=== PATIENT | male | born 1965 | race Caucasian/White ===

== ENCOUNTER → 2019-09-13 08:11 | Outpatient (BNVA) | payer MEDICARE, MEDICAID, SELFPAY | PROVIDERS: Family Provider Nurse Practitioner Family; PCP Family Medicine; Visit Provider Nurse Practitioner Psychiatric/Mental Health | DX: F31.73 Bipolar disorder, in partial remission, most recent episode manic (principal); F98.0 Enuresis not due to a substance or known physiological condition; F41.1 Generalized anxiety disorder; F17.210 Nicotine dependence, cigarettes, uncomplicated | CPT/HCPCS: 99213 ==

== ENCOUNTER → 2019-10-08 07:42 | Outpatient (BNVA) | payer MEDICARE, MEDICAID, SELFPAY | PROVIDERS: Family Provider Nurse Practitioner Family; PCP Family Medicine; Visit Provider Nurse Practitioner Psychiatric/Mental Health | DX: F31.73 Bipolar disorder, in partial remission, most recent episode manic (principal); F98.0 Enuresis not due to a substance or known physiological condition; F41.1 Generalized anxiety disorder; F17.210 Nicotine dependence, cigarettes, uncomplicated | CPT/HCPCS: 99213 ==

== ENCOUNTER → 2019-12-31 08:07 | Outpatient (BNVA) | payer MEDICARE, MEDICAID, SELFPAY | PROVIDERS: Family Provider Nurse Practitioner Family; PCP Family Medicine; Visit Provider Nurse Practitioner Psychiatric/Mental Health | DX: F31.73 Bipolar disorder, in partial remission, most recent episode manic (principal); F17.210 Nicotine dependence, cigarettes, uncomplicated; F41.1 Generalized anxiety disorder; F98.0 Enuresis not due to a substance or known physiological condition | CPT/HCPCS: 99213 ==

== ENCOUNTER → 2020-03-13 10:58 | Outpatient (BNVA) | payer MEDICARE, MEDICAID, SELFPAY | PROVIDERS: Family Provider Nurse Practitioner Family; PCP Family Medicine; Visit Provider Nurse Practitioner Psychiatric/Mental Health | DX: F31.73 Bipolar disorder, in partial remission, most recent episode manic (principal); F98.0 Enuresis not due to a substance or known physiological condition; F41.1 Generalized anxiety disorder; F17.210 Nicotine dependence, cigarettes, uncomplicated | CPT/HCPCS: 99213 ==

== ENCOUNTER → 2020-06-12 09:23 | Outpatient (BNVA) | payer MEDICARE, MEDICAID, SELFPAY | PROVIDERS: Family Provider Nurse Practitioner Family; PCP Family Medicine; Visit Provider Nurse Practitioner Psychiatric/Mental Health | DX: F31.73 Bipolar disorder, in partial remission, most recent episode manic (principal); F98.0 Enuresis not due to a substance or known physiological condition; F41.1 Generalized anxiety disorder; F17.210 Nicotine dependence, cigarettes, uncomplicated | CPT/HCPCS: 99214 ==

== ENCOUNTER → 2020-09-18 08:34 | Outpatient (BNVA) | payer MEDICARE, MEDICAID, SELFPAY | PROVIDERS: Family Provider Nurse Practitioner Family; PCP Family Medicine; Visit Provider Nurse Practitioner Psychiatric/Mental Health | DX: F31.73 Bipolar disorder, in partial remission, most recent episode manic (principal); F98.0 Enuresis not due to a substance or known physiological condition; F41.1 Generalized anxiety disorder; F17.210 Nicotine dependence, cigarettes, uncomplicated | CPT/HCPCS: 99214 ==

== ENCOUNTER 2020-12-11 16:12 | Emergency (ER) | payer MEDICARE, MEDICAID, SELFPAY ==
--- NOTE | 2020-12-11 16:17 | USR_ITS ---
PROCEDURE INFORMATION: Exam: US Duplex Left Lower Extremity Veins, Limited Exam date and time: 12/11/2020 4:17 PM Age: 55 years old Clinical indication: Patient HX: Swollen red lower lt leg; Additional info: Swelling/pain TECHNIQUE: Imaging protocol: Real-time Duplex ultrasound of the Left Lower Extremity with 2-D hyman scale, color Doppler flow and spectral waveform analysis with image documentation. Limited exam focused on the left lower extremity veins. COMPARISON: No relevant prior studies available. FINDINGS: Left deep veins: Unremarkable. The common femoral, femoral, proximal profunda femoral, popliteal, posterior tibial and peroneal veins are patent without thrombus. Normal compressibility, augmentation response and Doppler waveforms. Left superficial veins: Unremarkable. Saphenofemoral junction is patent without thrombus. Soft tissues: Subcutaneous edema in the calf. Lymph nodes: Small left inguinal lymph nodes, likely reactive. US/CV venous duplex [facility] [id number] IMPRESSION: No sonographic evidence of deep venous thrombosis.
[2020-12-11 17:11] VITALS: BP 116/83; PULSE 79; RESP 20; TEMP 36.6; O2SAT 97; BMI 26.9
--- NOTE | 2020-12-11 18:21 | ED_ITS ---
HPI - Extremity Problem General: Chief complaint: Extremity Problem,Nontraumatic Stated complaint: LLE swelling and pain Time Seen by Provider: 12/11/20 18:17 History of Present Illness: HPI Narrative: Patient is a 55-year-old male comes to the ED with left lower extremity complaint. Patient is deaf and communicates by writing things down. Patient says he has had left lower extremity pain and swelling for the past 5 days. Denies any injury or trauma to cause pain. The leg is also been red as well. Associated symptoms: Deny chest pain, fever(s) or rash Review of Systems Const: Denies: fever(s), chills or fatigue Eyes: Denies: change in vision or eye discomfort ENMT: Denies: throat pain, odynophagia, nasal discharge or nasal congestion Card: Denies: chest pain, palpitations, edema, swelling of feet/ankles, dyspnea on exertion or orthopnea Resp: Denies: dyspnea, productive cough or non-productive cough GI: Denies: abdominal pain, nausea, vomiting, diarrhea, constipation or hematochezia : Denies: flank pain, difficulty urinating, dysuria or hematuria Musc: Reports: extremity pain (left lower leg) and extremity swelling (left lower leg); Denies: neck pain or back pain Skin/Breast: Denies: rash or new lesions Neuro: Denies: headache(s), numbness in extremities or weakness in extremities PFSH ED PFSH: Medical History Bipolar disorder, in partial remission, most recent episode manic COPD (chronic obstructive pulmonary disease) Deaf Enuresis not due to a substance or known physiological condition Generalized anxiety disorder Hyperlipemia Hypothyroid Insomnia disorder Nicotine dependence, cigarettes, uncomplicated Obstructive sleep apnea Vitamin D deficiency Physical Exam Const: COMMON NORMALS: no acute distress, patient oriented x3 and alert EXAM LIMITATIONS: physical limitations (Patient is deaf) GENERAL APPEARANCE: cooperative and comfortable HENMT: COMMON NORMALS: normocephalic HEAD & SCALP: normocephalic MOUTH: Normal oral and palatal mucosa present THROAT: posterior oropharynx normal and uvula midline Neck/C-Spine: COMMON NORMALS: supple GENERAL: Yes normal visual inspection Resp: COMMON NORMALS: normal respiratory effort, No retractions, No use of accessory muscles and clear to auscultation bilaterally AUSCULTATION: clear to auscultation bilaterally Cardio: COMMON NORMALS: regular rate, regular rhythm, S1 normal heart sound present, S2 normal heart sound present, No gallops present (Cardio), No clicks present (Cardio), No murmurs present (Cardio) and Peripheral pulses 2+ throughout RATE: regular rate RHYTHM: regular rhythm HEART SOUNDS: S1 normal heart sound present and S2 normal heart sound present PERIPHERAL PULSES: Peripheral pulses 2+ throughout GI: COMMON NORMALS: Normal to inspection, nondistended, normoactive bowel sounds present, Soft to palpation, non-tender and no masses PALPATION: Yes Soft to palpation : COMMON NORMALS: Yes no CVA tenderness BLADDER/KIDNEY EXAM: Yes no CVA tenderness Back/Pelvis: COMMON NORMALS: no CVA tenderness Extremity: NARRATIVE EXTREMITY EXAM: Patient's left lower leg has erythema, warmth and tenderness upon palpation. 2+ pitting edema in left lower extremity. Findings suggestive of cellulitis. GENERAL: Yes normal exam except as noted and Yes edema (2+ pitting edema in left lower extremity.) Neuro: COMMON NORMALS: patient oriented x3 and moves all extremities SENSORIUM/ORIENTATION: Yes alert Skin: GENERAL SKIN EXAM: dry skin Course Vital Signs: Vital signs: Vital Signs Temperature 98 F 12/11/20 17:11 Pulse Rate 87 12/11/20 18:54 Respiratory Rate 16 12/11/20 18:54 Blood Pressure 116/83 12/11/20 17:11 Pulse Oximetry 98 12/11/20 18:54 MDM - Extremity (Nontraumatic) MDM Narrative: Medical decision making narrative: Patient is a 55-year-old male comes to the ED with left lower extremity pain and swelling. Exam shows signs of cellulitis in the left lower extremity. Patient does have 2+ pitting edema to the left lower extremity. Ultrasound venous duplex of left lower extremity showed no DVTs or blood clots seen. Patient diagnosed with cellulitis and discharged home on Bactrim. He was told to follow-up with his PCP in 7 to 10 days reevaluation. Patient understood and agreed with plan. Imaging Data^: US Vascular: Attestation: I personally reviewed and interpreted this imaging study as follows: Radiologist's impression: [address] [id number] ReportSigned Patient: Satish Blas #: [id number]: [id number]#:[id number]/Sex: 55 / MADM Date: 12/11/20Loc: ERRoom/Bed:Attending Dr: Ordering Provider/Ordering MD: Sander Paige DO Date of Service: 12/11/20 Procedure(s): [place] [address] Accession Number(s): [id number] Report Number: [id number] PROCEDURE INFORMATION: Exam: US Duplex Left Lower Extremity Veins, Limited Exam date and time: 12/11/2020 4:17 PM Age: 55 years old Clinical indication: Patient HX: Swollen red lower lt leg; Additional info: Swelling/pain TECHNIQUE: Imaging protocol: Real-time Duplex ultrasound of the Left Lower Extremity with 2-D hymna scale, color Doppler flow and spectral waveform analysis with image documentation. Limited exam focused on the left lower extremity veins. COMPARISON: No relevant prior studies available. FINDINGS: Left deep veins: Unremarkable. The common femoral, femoral, proximal profunda femoral, popliteal, posterior tibial and peroneal veins are patent without thrombus. Normal compressibility, augmentation response and Doppler waveforms. Left superficial veins: Unremarkable. Saphenofemoral junction is patent without thrombus. Soft tissues: Subcutaneous edema in the calf. Lymph nodes: Small left inguinal lymph nodes, likely reactive. US/[place] [id number] IMPRESSION: No sonographic evidence of deep venous thrombosis. Dictated By:Dallas Dailey MDSigned By:Dallas Dailey MDSigned Date/Time:12/11/201706DD/ 04 Discharge Plan Discharge Patient Disposition: Home Clinical Impression: Cellulitis Qualifiers: Site of cellulitis: extremity Site of cellulitis of extremity: lower extremity Laterality: left Qualified Code(s): L03.116 - Cellulitis of left lower limb Condition: Stable Prescriptions: New sulfamethoxazole-trimethoprim 800-160 mg tablet 1 tab PO BID 7 Days Qty: 14 RF: 0 No Action haloperidol 5 mg tablet 5 mg PO BID PRN (Reason: agitation) Qty: 60 RF: 3 simvastatin 20 mg tablet 40 mg PO QDAY RF: 0 desmopressin 0.1 mg tablet See Rx Instructions .ROUTE .COMPLEX Qty: 90 RF: 3 fluticasone propion-salmeterol [Wixela Inhub] 250-50 mcg/dose blister with device See Rx Instructions .ROUTE .COMPLEX Qty: 60 RF: 5 levothyroxine 50 mcg tablet See Rx Instructions .ROUTE .COMPLEX Qty: 30 RF: 5 divalproex [Depakote] 250 mg tablet,delayed release (DR/EC) 500 mg PO .Q6pm Qty: 60 RF: 6 lorazepam 1 mg tablet 1 mg PO BID Qty: 60 RF: 3 risperidone [Risperdal] 2 mg tablet 6 mg PO .QHS Qty: 90 RF: 6 trazodone 50 mg tablet 50 mg PO .bedtime PRN (Reason: sleep) Qty: 30 RF: 6 trihexyphenidyl 5 mg tablet 5 mg PO TID Qty: 90 RF: 6 ergocalciferol (vitamin D2) 1,250 mcg (50,000 unit) capsule See Rx Instructions .ROUTE .COMPLEX Qty: 12 RF: 1 Discharge Orders: Discharge ED (Routine); Ordered 12/11/20 Ordered By: Salvador Tadeo Referrals: Tennille Chavez MD [Primary Care Provider] - Discharge Diet: Regular Discharge Activity: Resume usual activity Patient Instructions: Cellulitis (ED) Activity Restrictions/Additional Instructions: While here in the ED your left leg was evaluated by ultrasound for blood clot and the report was negative for any blood clot or DVTs. Follow-up with medical provider as directed in 7 to 10 days for reevaluation. Rest, elevate left leg and wear compression stockings to help with the swelling. Take full course of antibiotic as prescribed. Return to the ER or your medical provider if condition worsens. Please read and understand discharge instructions. Thank you for choosing [facility] for your healthcare needs today. Please realize this is an emergency room and that we are providing you with a medical screening exam and this may not be complete and all inclusive of all the testing and or work up that you may need to determine your ailment or severity of your illness. It is very important that you follow up as instructed or that you return to the Emergency Department should you have concerns or if your condition changes or worsens in any way. Coding Level of Care Code ED Roving Machine Operator for Laura Wing Exam Comprehensive
[2020-12-11] MEDS: sulfamethoxazole-trimeth DS 160-800 mg Tablet 1 TAB PO (18:49)
[2020-12-11 18:54] VITALS: PULSE 87; RESP 16; O2SAT 98
== END 2020-12-11 18:55 | disposition home or self-care (01) ==
PROVIDERS: Emergency Provider Physician Assistant; PCP Family Medicine
DX: L03.116 Cellulitis of left lower limb (principal); J44.9 Chronic obstructive pulmonary disease, unspecified; E78.5 Hyperlipidemia, unspecified; E03.9 Hypothyroidism, unspecified; G47.33 Obstructive sleep apnea (adult) (pediatric)
CPT/HCPCS: 93971; 99283

== ENCOUNTER → 2021-02-05 12:31 | Outpatient (BNVA) | payer MEDICARE, MEDICAID, SELFPAY | PROVIDERS: PCP Family Medicine; Visit Provider Nurse Practitioner Family | DX: Z00.00 Encounter for general adult medical examination without abnormal findings (principal); E55.9 Vitamin D deficiency, unspecified; E03.9 Hypothyroidism, unspecified; E78.2 Mixed hyperlipidemia; Z79.899 Other long term (current) drug therapy | CPT/HCPCS: 80053; 80061; 81003; 82306; 83036; 84443; 85025 ==

== ENCOUNTER → 2021-03-12 08:09 | Outpatient (BNVA) | payer MEDICARE, MEDICAID, SELFPAY | PROVIDERS: PCP Family Medicine; Visit Provider Nurse Practitioner Psychiatric/Mental Health | DX: F31.73 Bipolar disorder, in partial remission, most recent episode manic (principal); F98.0 Enuresis not due to a substance or known physiological condition; F41.1 Generalized anxiety disorder; F17.210 Nicotine dependence, cigarettes, uncomplicated; Z79.899 Other long term (current) drug therapy | CPT/HCPCS: 99214 ==

== ENCOUNTER → 2021-05-07 12:10 | Outpatient (BNVA) | payer MEDICARE, MEDICAID, SELFPAY | PROVIDERS: PCP Nurse Practitioner Family; Visit Provider Nurse Practitioner Family | DX: E78.2 Mixed hyperlipidemia (principal); E55.9 Vitamin D deficiency, unspecified; E03.9 Hypothyroidism, unspecified; F31.73 Bipolar disorder, in partial remission, most recent episode manic; Z79.899 Other long term (current) drug therapy | CPT/HCPCS: 80053; 80164; 82306; 84443; 85025 ==

== ENCOUNTER → 2021-06-18 08:15 | Outpatient (BNVA) | payer MEDICARE, MEDICAID, SELFPAY | PROVIDERS: PCP Nurse Practitioner Family; Visit Provider Nurse Practitioner Psychiatric/Mental Health | DX: F31.73 Bipolar disorder, in partial remission, most recent episode manic (principal); F98.0 Enuresis not due to a substance or known physiological condition; F41.1 Generalized anxiety disorder; F17.210 Nicotine dependence, cigarettes, uncomplicated; Z79.899 Other long term (current) drug therapy | CPT/HCPCS: 99214 ==

== ENCOUNTER → 2021-09-17 08:24 | Outpatient (BNVA) | payer MEDICARE, MEDICAID, SELFPAY | PROVIDERS: PCP Nurse Practitioner Family; Visit Provider Nurse Practitioner Psychiatric/Mental Health | DX: F31.73 Bipolar disorder, in partial remission, most recent episode manic (principal); F98.0 Enuresis not due to a substance or known physiological condition; F41.1 Generalized anxiety disorder; F17.210 Nicotine dependence, cigarettes, uncomplicated; Z79.899 Other long term (current) drug therapy | CPT/HCPCS: 99214 ==

== ENCOUNTER → 2021-10-01 10:43 | Outpatient (BNVA) | payer MEDICARE, MEDICAID, SELFPAY | PROVIDERS: PCP Nurse Practitioner Family; Visit Provider Nurse Practitioner | DX: Z79.899 Other long term (current) drug therapy (principal); F31.73 Bipolar disorder, in partial remission, most recent episode manic; E78.2 Mixed hyperlipidemia | CPT/HCPCS: 80053; 80164; 81000; 84443; 85025 ==

== ENCOUNTER → 2022-01-14 09:56 | Outpatient (BNVA) | payer MEDICARE, OTHER, SELFPAY | PROVIDERS: PCP Nurse Practitioner Family; Visit Provider Nurse Practitioner | DX: Z79.899 Other long term (current) drug therapy (principal); E78.2 Mixed hyperlipidemia; E55.9 Vitamin D deficiency, unspecified; E03.9 Hypothyroidism, unspecified; F31.73 Bipolar disorder, in partial remission, most recent episode manic | CPT/HCPCS: 80053; 80061; 80164; 81003; 82306; 83036; 84443; 85025 ==

== ENCOUNTER → 2022-11-01 09:21 | Outpatient (BNVA) | payer MEDICARE, MEDICAID, SELFPAY | PROVIDERS: PCP Nurse Practitioner; Visit Provider Nurse Practitioner Family | DX: I96 Gangrene, not elsewhere classified (principal); L97.822 Non-pressure chronic ulcer of other part of left lower leg with fat layer exposed; L03.116 Cellulitis of left lower limb | CPT/HCPCS: 97597; 99213; A6212 ==

== ENCOUNTER → 2022-11-08 09:05 | Outpatient (BNVA) | payer MEDICARE, MEDICAID, OTHER, SELFPAY | PROVIDERS: PCP Nurse Practitioner; Visit Provider Nurse Practitioner Family | DX: I96 Gangrene, not elsewhere classified (principal); L97.822 Non-pressure chronic ulcer of other part of left lower leg with fat layer exposed; L03.116 Cellulitis of left lower limb | CPT/HCPCS: 97597 ==

== ENCOUNTER → 2022-11-14 10:01 | Outpatient (BNVA) | payer MEDICARE, MEDICAID, OTHER, SELFPAY | PROVIDERS: PCP Nurse Practitioner; Visit Provider Nurse Practitioner | DX: Z79.899 Other long term (current) drug therapy (principal) | CPT/HCPCS: 80053; 80061; 80164; 83036 ==

== ENCOUNTER → 2022-11-15 08:56 | Outpatient (BNVA) | payer MEDICARE, MEDICAID, OTHER, SELFPAY | PROVIDERS: PCP Nurse Practitioner; Visit Provider Nurse Practitioner Family | DX: Z09 Encounter for follow-up examination after completed treatment for conditions other than malignant neoplasm (principal) | CPT/HCPCS: 99212 ==

== ENCOUNTER → 2023-02-20 11:46 | Outpatient (BNVA) | payer MEDICARE, MEDICAID, OTHER, SELFPAY | PROVIDERS: PCP Nurse Practitioner; Visit Provider Nurse Practitioner | DX: E78.2 Mixed hyperlipidemia (principal); F31.73 Bipolar disorder, in partial remission, most recent episode manic; Z79.899 Other long term (current) drug therapy; Z12.5 Encounter for screening for malignant neoplasm of prostate | CPT/HCPCS: 80053; 80061; 81000; 83036; 84443; 85025 ==

== ENCOUNTER → 2023-08-25 10:37 | Outpatient (BNVA) | payer MEDICARE, MEDICAID, SELFPAY | PROVIDERS: PCP Nurse Practitioner; Visit Provider Nurse Practitioner Family | DX: Z79.899 Other long term (current) drug therapy (principal) | CPT/HCPCS: 80053; 80164 ==

== ENCOUNTER → 2023-10-27 09:36 | Outpatient (BNVA) | payer MEDICARE, MEDICAID, OTHER, SELFPAY | PROVIDERS: PCP Nurse Practitioner; Visit Provider Nurse Practitioner Family | DX: Z79.899 Other long term (current) drug therapy (principal); E78.2 Mixed hyperlipidemia | CPT/HCPCS: 80061; 80164 ==

== ENCOUNTER → 2024-03-01 10:17 | Outpatient (BNVA) | payer MEDICARE, MEDICAID, SELFPAY | PROVIDERS: PCP Nurse Practitioner; Visit Provider Nurse Practitioner Family | DX: E78.2 Mixed hyperlipidemia (principal); E55.9 Vitamin D deficiency, unspecified; E03.9 Hypothyroidism, unspecified; Z79.899 Other long term (current) drug therapy; F31.73 Bipolar disorder, in partial remission, most recent episode manic | CPT/HCPCS: 80053; 80061; 80164; 81003; 82306; 83036; 84443; 85025 ==

== ENCOUNTER → 2024-05-10 10:10 | Outpatient (BNVA) | payer MEDICARE, MEDICAID, SELFPAY | PROVIDERS: PCP Nurse Practitioner; Visit Provider Nurse Practitioner Family | DX: Z79.899 Other long term (current) drug therapy (principal) | CPT/HCPCS: 80164 ==

== ENCOUNTER → 2024-09-06 10:29 | Outpatient (BNVA) | payer MEDICARE, MEDICAID, OTHER, SELFPAY | PROVIDERS: PCP Nurse Practitioner Family; Visit Provider Nurse Practitioner Family | DX: Z79.899 Other long term (current) drug therapy (principal); E78.2 Mixed hyperlipidemia; E03.9 Hypothyroidism, unspecified; E55.9 Vitamin D deficiency, unspecified; F31.73 Bipolar disorder, in partial remission, most recent episode manic; H91.93 Unspecified hearing loss, bilateral | CPT/HCPCS: 80053; 80061; 80164; 81003; 82306; 83036; 84443; 85025 ==

== ENCOUNTER → 2024-11-15 10:31 | Outpatient (BNVA) | payer MEDICARE, MEDICAID, SELFPAY | PROVIDERS: PCP Nurse Practitioner Family; Visit Provider Nurse Practitioner Family | DX: Z79.899 Other long term (current) drug therapy (principal) | CPT/HCPCS: 80164 ==

== ENCOUNTER → 2025-02-14 09:34 | Outpatient (BNVA) | payer MEDICARE, MEDICAID, SELFPAY | PROVIDERS: PCP Nurse Practitioner Family; Visit Provider Nurse Practitioner Family | DX: Z12.5 Encounter for screening for malignant neoplasm of prostate (principal); E03.9 Hypothyroidism, unspecified; E78.2 Mixed hyperlipidemia; F31.73 Bipolar disorder, in partial remission, most recent episode manic; F41.1 Generalized anxiety disorder; Z79.899 Other long term (current) drug therapy | CPT/HCPCS: 80053; 80061; 80164; 81003; 82306; 83036; 84443; 85025; G0103 ==